=== PATIENT | male | born 1995 | race Caucasian/White ===

== ENCOUNTER 2021-07-26 17:20 | Emergency (ER) | payer OTHER ==
[2021-07-26 18:17] LABS: CORONAVIRUS 2019 SARS-COV-2 NEGATIVE (NEGATIVE); INFLUENZA A NAA NEGATIVE (NEGATIVE)
== END 2021-07-26 19:14 | disposition home or self-care (01) ==
LOC: FER 17:20
PROVIDERS: Physician Assistant
DX: J45.901 Unspecified asthma with (acute) exacerbation (principal); Z79.899 Other long term (current) drug therapy; Z20.822 Contact with and (suspected) exposure to COVID-19
CPT/HCPCS: 71046; 93005; 94640; 94664; J2930; U0002

== ENCOUNTER 2021-12-15 23:34 | Emergency (ER) | payer OTHER | END 2021-12-16 01:26 | disposition home or self-care (01) | LOC: FER 23:34 | DX: S80.11XA Contusion of right lower leg, initial encounter (principal); V40.6XXA Car passenger injured in collision with pedestrian or animal in traffic accident, initial encounter | CPT/HCPCS: 99283 ==